=== PATIENT | male | born 1960 | race Caucasian/White ===

== ENCOUNTER 2025-02-22 06:04 | Day surgery (SDC) | payer MEDICAID ==
[2025-02-20 09:44] LABS: Urine Bacteria None Seen /hpf (None Seen)
[2025-02-20 09:58] LABS: Basophils # (auto) 0.1 10 ^3/uL (0-0.2); Basophils % (auto) 1.2 % (0.0-2.0); Eosinophils # (auto) 0.4 10 ^3/uL (0-0.8); Eosinophils % (auto) 4.4 % (0.0-7.0); Hematocrit 46.2 % (41.0-53.0); Hemoglobin 16.4 g/dL (13.5-17.5); Lymphocytes # (auto) 2.7 10 ^3/uL (0.4-5.4); Lymphocytes % (auto) 29.6 % (10.0-50.0); Mean Corpuscular Hemoglobin 32.6 pg (28.0-32.0); Mean Corpuscular Hgb Conc. 35.6 g/dL (32.0-36.0); Mean Corpuscular Volume 91.7 fL (80.0-100.0); Monocytes # (auto) 0.8 10 ^3/uL (0-1.3); Monocytes % (auto) 9.2 % (0.0-12.0); Neutrophils # (auto) 5.1 10 ^3/uL (1.6-8.6); Neutrophils % (auto) 55.6 % (37.0-80.0); Nucleated Red Blood Cells % 0.1 %; Platelet Count (auto) 234 10^3/uL (140-450); Red Blood Cells 5.03 10^6/uL (4.5-5.90); Red Cell Distribution Width 13.2 % (11.8-14.3); White Blood Cell 9.2 10^3/uL (4.4-10.8)
[2025-02-20 10:05] LABS: Urine Blood TRACE /uL (Negative); Urine Clarity Clear (Clear); Urine Color Light-Yellow (Yellow); Urine Protein, UAD 1+ (Negative); Urine Specific Gravity 1.029 (1.001-1.035); Urine Squamous Epithelial Cell FEW /hpf (<5); Urine Urobilinogen Normal (Negative); Urine WBC < 1 /HPF (0-3)
[2025-02-20 10:07] LABS: INR 1.03 (0.9-1.15); Partial Thromboplastin Time 27.1 SEC (24.5-34.5); Prothrombin Time 10.9 sec (9.3-11.8)
[2025-02-20 10:10] LABS: Alkaline Phosphatase 90 U/L (46-116); Anion Gap 9 (5-15); Aspartate Aminotransferase 38 U/L (13-40); BUN/Creatinine Ratio 14.8 (10.0-20.0); Blood Urea Nitrogen 18 mg/dL (9-23); Carbon Dioxide 26 mmol/L (20-31); Chloride 107 mmol/L (98-107); Potassium 4.2 mmol/L (3.5-5.1); Sodium 142 mmol/L (136-145); Total Protein 7.9 g/dL (5.7-8.2)
[2025-02-20 10:11] LABS: Alanine Aminotransferase 71 U/L (7-40); Albumin 4.9 g/dL (3.2-4.8); Bilirubin, Total 0.5 mg/dL (0.2-1.0); Calcium 11.1 mg/dL (8.7-10.4); Glucose 139 mg/dL (74-106)
[~2025-02-22] VITALS: Ht 182.9 cm; Wt 97.1 kg
[~2025-02-22 06:04] MED LIST: AMLO1TAB23 PO; ASPI81CH74 PO; ATOR10TA52 PO; CHOL20007 OR; CLON0.1T PO; EMPA1TAB3 PO; ENAL1TAB48 PO; GLIP5TAB21 PO; HYDR25TA4 PO; METF-370 PO; NIC21P TOP; OMEG1400 PO; PANT40T PO; SEMA4INJ SC
[2025-02-22] MEDS ORDERED: SEVOFLURANE 250 ML SOL IN ONE (06:05)
[2025-02-22] MEDS ORDERED: fentaNYL CITRATE 100 MCG/2 ML VL ONE ×2 (06:54→07:32)
[2025-02-22] MEDS ORDERED: PROPOFOL 10 MG/ML 20 ML IV ONE (06:54)
[2025-02-22] MEDS ORDERED: BUPIVACAINE 0.5% P/F INJ 10 ML VIAL ONE (06:57)
[2025-02-22] MEDS ORDERED: ePHEDrine SULFATE 50 MG/ML AMP ONE (07:30)
[2025-02-22] MEDS: ceFAZolin 2 GM/D5W50ml 50 ML IV ONE (07:35)
[2025-02-22] MEDS: LIDOCAINE W/ EPINEPHRINE 1% 20ML VIAL ONE (08:00)
[2025-02-22] MEDS ORDERED: BACITRACIN TOP OINT 1 UD PKG TOP ONE (08:04)
[2025-02-22 08:09] VITALS: TEMP 98.4; O2SAT 94
[2025-02-22] MEDS ORDERED: HYDROmorphone HCL 2 MG/ML VL/or syr IV PRN (08:30)
[2025-02-22] MEDS ORDERED: ACETAMINOPHEN IV 1000 MG/100ML (10MG/ML) IV PRN (08:30)
[2025-02-22] MEDS ORDERED: ONDANSETRON HCL 4 MG/2 ML VIAL IV ONE (08:30)
--- NOTE | 2025-02-22 08:37 | DVHOP ---
DATE OF SURGERY: 02/22/2025 PREOPERATIVE DIAGNOSIS: Ulcerating lesion left lower lip and chin. POSTOPERATIVE DIAGNOSIS: Ulcerating lesion left lower lip and chin. SURGEON: Cipriano Barnett MD BATTERY CONTAINER INSPECTOR: Alfredo Tee NP ANESTHESIA: General, Dr. Cruz. PROCEDURE: Excision of lesion from face. DESCRIPTION OF PROCEDURE: Under adequate anesthesia with the patient's skin prepped and draped and infiltrated with 0.25% Marcaine and 0.5% Xylocaine with epinephrine, an incision approximately 1 mm adjacent to the lesion was performed utilizing combination of Otoe blade and 15 blade. The patient's lesion was excised in its entirety including the vermilion border of the lower lip. The lesion was marked with a long suture at 12 o'clock and a short suture at 9 o'clock position prior to being submitted for histopathologic examination. The wound was then profusely irrigated. Hemostasis was accomplished and approximation was accomplished utilizing 3-0 Monocryl suture and subsequently a 4-0 nylon suture for the approximation of the skin in the vermilion border. The patient remained stable throughout the procedure and left the operating room following an accurate needle and sponge count. MD SÁNCHEZ Weinstein/AUDREY TID: [id number] RECEIPT: [id number]
[2025-02-22 08:54] VITALS: BP 125/80; PULSE 72; RESP 13; O2SAT 94
== END 2025-02-22 09:22 | disposition home or self-care (01) ==
LOC: SUR 06:04
PROVIDERS: ATTEND Surgery
DX: C44.02 Squamous cell carcinoma of skin of lip (principal); I10 Essential (primary) hypertension; E11.9 Type 2 diabetes mellitus without complications; E78.00 Pure hypercholesterolemia, unspecified; J44.9 Chronic obstructive pulmonary disease, unspecified; Z86.19 Personal history of other infectious and parasitic diseases; Z96.652 Presence of left artificial knee joint; Z98.890 Other specified postprocedural states; K13.79 Other lesions of oral mucosa
CPT/HCPCS: 11643; 36415; 80053; 81001; 82962; 85025; 85610; 85730; 88305; J0690; J2405; J2704; J3010; J3490